=== PATIENT | female | born 1975 | race Asian ===

== ENCOUNTER → 2020-09-06 | Outpatient (CLI) | payer OTHER | END | disposition home or self-care (01) | LOC: LAB 08:13 | PROVIDERS: ATTEND Physician Assistant | DX: U07.1 COVID-19 (principal) | CPT/HCPCS: C9803; U0003 ==

== ENCOUNTER 2022-09-28 22:01 | Emergency (ER) | payer BC, OTHER ==
[~2022-09-28] VITALS: Ht 152.4 cm; Wt 49.0 kg
[2022-09-28 22:20] VITALS: BP 113/78
[2022-09-30 10:51] LABS: Hepatitis B Surface Antibody Negative (Negative)
== END 2022-09-28 22:41 | disposition home or self-care (01) ==
LOC: ER 22:01 → EEVIPCON 22:01 → ER 22:41
DX: S69.82XA Other specified injuries of left wrist, hand and finger(s), initial encounter (principal); W46.0XXA Contact with hypodermic needle, initial encounter; Y93.89 Activity, other specified; Y92.89 Other specified places as the place of occurrence of the external cause; Y99.8 Other external cause status
CPT/HCPCS: 36415; 86703; 86706; 86803; 87340

== ENCOUNTER → 2023-08-29 | Outpatient (CLI) | payer BC ==
[2023-08-29 11:11] LABS: Basophils # (auto) 0 10 ^3/uL (0-0.2); Basophils % (auto) 0.4 % (0.0-2.0); Eosinophils # (auto) 0 10 ^3/uL (0-0.8); Eosinophils % (auto) 0.3 % (0.0-7.0); Hematocrit 38.1 % (36.0-46.0); Hemoglobin 12.5 g/dL (12.2-16.2); Lymphocytes # (auto) 2.8 10 ^3/uL (0.4-5.4); Lymphocytes % (auto) 31.3 % (10.0-50.0); Mean Corpuscular Hemoglobin 29.8 pg (28.0-32.0); Mean Corpuscular Hgb Conc. 32.7 g/dL (32.0-36.0); Mean Corpuscular Volume 91.2 fL (80.0-100.0); Monocytes # (auto) 0.7 10 ^3/uL (0-1.3); Monocytes % (auto) 7.7 % (0.0-12.0); Neutrophils # (auto) 5.4 10 ^3/uL (1.6-8.6); Neutrophils % (auto) 60.3 % (37.0-80.0); Nucleated Red Blood Cells % 0.1 %; Red Blood Cells 4.18 10^6/uL (4.0-5.20); Red Cell Distribution Width 12.7 % (11.8-14.3)
[2023-08-29 12:03] LABS: Erythrocyte Sedimentation Rate 15 mm/hr (0-20)
[2023-08-29 12:15] LABS: Alanine Aminotransferase 45 U/L (7-40); Albumin 4.8 g/dL (3.2-4.8); Alkaline Phosphatase 85 U/L (46-116); Anion Gap 7 (5-15); Aspartate Aminotransferase 30 U/L (13-40); Bilirubin, Total 0.7 mg/dL (0.2-1.0); Blood Urea Nitrogen 14 mg/dL (9-23); Calcium 9.3 mg/dL (8.5-10.1); Carbon Dioxide 26 mmol/L (20-30); Chloride 107 mmol/L (98-107); Cholesterol 226 mg/dL (< 200); Glucose 89 mg/dL (74-106); LDL Cholesterol 115 mg/dL (< 100); Phosphorus 3.6 mg/dL (2.4-5.1); Potassium 3.5 mmol/L (3.5-5.1); Sodium 140 mmol/L (136-145); Triglycerides 52 mg/dL (< 150)
[2023-08-29 12:16] LABS: Total Protein 7.7 g/dL (5.7-8.2)
[2023-08-29 12:18] LABS: Follicle Stimulating Hormone 19.08 IU/L (SEE BELOW); Leuteinizing Hormone 16.8 IU/L
[2023-08-29 12:19] LABS: Prolactin 10.66 ng/mL (2.8-29.2)
[2023-08-29 12:21] LABS: Folate (Folic Acid) 18.31 ng/mL (>5.38)
[2023-08-29 12:37] LABS: HDL Cholesterol 91 mg/dL (40-59)
[2023-08-29 12:47] LABS: Magnesium 2.1 mg/dL (1.6-2.6)
== END | disposition home or self-care (01) ==
LOC: LAB 10:56
PROVIDERS: ATTEND Family Medicine
DX: Z00.00 Encounter for general adult medical examination without abnormal findings (principal); Z95.1 Presence of aortocoronary bypass graft
CPT/HCPCS: 36415; 80053; 80061; 82607; 82670; 82746; 83001; 83002; 83036; 83615; 83735; 84100; 84144; 84146; 85025; 85652; 87086

== ENCOUNTER 2025-09-05 12:04 | Outpatient (CLI) | payer BC ==
[2025-09-05 13:04] LABS: Hematocrit 40.2 % (36.0-46.0); Hemoglobin 13.5 g/dL (12.2-16.2); Mean Corpuscular Hemoglobin 30.3 pg (28.0-32.0); Mean Corpuscular Volume 90.7 fL (80.0-100.0)
[2025-09-05 13:09] LABS: Urine Protein, UAD Negative (Negative)
[2025-09-05 13:13] LABS: Iron 116.0 ug/dL (50-170)
[2025-09-05 13:16] LABS: Total Iron Binding Capacity 346.0 ug/dL (250-425)
[2025-09-05 13:17] LABS: Alkaline Phosphatase 73 U/L (46-116); Anion Gap 9 (5-15); BUN/Creatinine Ratio 20.9 (10.0-20.0); Blood Urea Nitrogen 14 mg/dL (9-23); Calcium 9.9 mg/dL (8.7-10.4); Carbon Dioxide 30 mmol/L (20-31); Chloride 103 mmol/L (98-107); Glucose 90 mg/dL (74-106); Magnesium 2.3 mg/dL (1.6-2.6); Potassium 4.0 mmol/L (3.5-5.1); Sodium 142 mmol/L (136-145); Total Protein 8.0 g/dL (5.7-8.2); Triglycerides 89 mg/dL (< 150)
[2025-09-05 13:18] LABS: Albumin 4.7 g/dL (3.2-4.8); Bilirubin, Total 0.8 mg/dL (0.2-1.0)
[2025-09-05 13:21] LABS: Alanine Aminotransferase 41 U/L (7-40); Cholesterol 276 mg/dL (< 200); HDL Cholesterol 88 mg/dL (40-59)
[2025-09-05 13:48] LABS: Uric Acid 3.8 mg/dL (3.1-7.8)
[2025-09-05 14:12] LABS: Total Cells Counted 100.0 (100)
== END 2025-09-05 17:00 | disposition home or self-care (01) ==
LOC: LAB 12:04
PROVIDERS: ATTEND Family Medicine
DX: E78.00 Pure hypercholesterolemia, unspecified (principal); E78.2 Mixed hyperlipidemia; N95.1 Menopausal and female climacteric states; Z00.00 Encounter for general adult medical examination without abnormal findings
CPT/HCPCS: 36415; 80053; 80061; 81001; 82306; 82607; 83036; 83540; 83550; 83735; 84443; 84550; 85007; 85027; 87086